=== PATIENT | male | born 1940 | race Two or more races ===

== ENCOUNTER 2019-04-30 08:23 | Observation (INO) | payer MEDICARE, OTHER ==
--- NOTE | 2019-04-30 08:44 | ED ---
Abdominal Pain HPI - General Chief Complaint: Abdominal Pain Stated Complaint: H/O Diverticulitis Left abd pain Time Seen by Provider: 04/30/19 08:30 Source: patient, RN notes reviewed Mode of arrival: ambulatory Limitations: no limitations - History of Present Illness Initial Comments: This is a 78-year-old male with a prior history of diverticulitis who states he's had several days of left lower quadrant abdominal pain he states it is also in the flank area states last night he had fevers and chills with it. He feels very similar to his previous episode of diverticulitis. He states at rest the pain is about 4/10 when he pushes on it is about 8/10. No dysuria hematuria no trouble bowel movements. Of note he does have a history of a denture robot prostatectomy in the past. MD Complaint: abdominal pain - Related Data Home Medications Medication Instructions Recorded Confirmed Aspirin 81 mg PO DAILY 04/30/19 04/30/19 Calcium Carbonate/Vitamin D3 1 tab PO DAILY 04/30/19 04/30/19 [Calcium 600-Vit D3 400 Tablet] Esomeprazole Magnesium [NexIUM 20 mg PO DAILY 04/30/19 04/30/19 24Hr] Levothyroxine Sodium [Synthroid] 50 mcg PO SUTUTHSA 04/30/19 04/30/19 Levothyroxine Sodium [Synthroid] 75 mcg PO MOWEFR 04/30/19 04/30/19 Simvastatin [Zocor] 20 mg PO HS 04/30/19 04/30/19 Allergies Allergy/AdvReac Type Severity Reaction Status Date / Time No Known Allergies Allergy Verified 04/30/19 08:50 Review of Systems ROS Statement: Those systems with pertinent positive or pertinent negative responses have been documented in the HPI. ROS Other: All systems not noted in ROS Statement are negative. Past Medical History Past Medical History: Cancer, GERD/Reflux, Hyperlipidemia, Thyroid Disorder Additional Past Medical History / Comment(s): prostate CA History of Any Multi-Drug Resistant Organisms: None Reported Past Surgical History: Joint Replacement Additional Past Surgical History / Comment(s): prostatectomy, right hip replacement Past Psychological History: No Psychological Hx Reported Smoking Status: Never smoker Past Alcohol Use History: Occasional Past Drug Use History: None Reported General Exam - General Exam Comments Initial Comments: This is a well-developed well-nourished awake alert oriented 3 male Limitations: no limitations General appearance: alert, in no apparent distress Head exam: Present: atraumatic, normocephalic, normal inspection Eye exam: Present: normal appearance, PERRL, EOMI. Absent: scleral icterus, conjunctival injection, periorbital swelling ENT exam: Present: normal exam, mucous membranes moist Neck exam: Present: normal inspection. Absent: tenderness, meningismus, lymphadenopathy Respiratory exam: Present: normal lung sounds bilaterally. Absent: respiratory distress, wheezes, rales, rhonchi, stridor Cardiovascular Exam: Present: regular rate, normal rhythm, normal heart sounds. Absent: systolic murmur, diastolic murmur, rubs, gallop, clicks GI/Abdominal exam: Present: soft, tenderness (Left lower quadrant and slight flank tenderness palpation), normal bowel sounds. Absent: distended, guarding, rebound, rigid, bruit, pulsatile mass, hernia Rectal exam: Present: deferred Extremities exam: Present: normal inspection, full ROM, normal capillary refill. Absent: tenderness, pedal edema, joint swelling, calf tenderness Back exam: Present: normal inspection Neurological exam: Present: alert, oriented X3, CN II-XII intact Psychiatric exam: Present: normal affect, normal mood Skin exam: Present: warm, dry, intact, normal color. Absent: rash Course Vital Signs 04/30/19 08:25 Temperature 97.1 F L Pulse Rate 89 Respiratory 18 Rate Blood Pressure 161/100 O2 Sat by Pulse 98 Oximetry Medical Decision Making - Medical Decision Making I did discuss the findings with the patient this is his second bout of diverticulitis who does have pain on palpation of the left lower quadrant lower abdomen area after discussions with the patient and we will admit him I did discuss case with Dr. Smyth who did come the emergency department see the patient. - Lab Data Result diagrams: 04/30/19 08:40 04/30/19 08:40 Lab Results 04/30/19 04/30/19 04/30/19 Range/Units 08:40 08:40 08:40 WBC 9.9 (3.8-10.6) k/uL RBC 4.30 (4.30-5.90) m/uL Hgb 13.9 (13.0-17.5) gm/dL Hct 42.4 (39.0-53.0) % MCV 98.6 (80.0-100.0) fL MCH 32.2 (25.0-35.0) pg MCHC 32.7 (31.0-37.0) g/dL RDW 13.9 (11.5-15.5) % Plt Count 208 (150-450) k/uL Neutrophils % 76 % Lymphocytes % 12 % Monocytes % 7 % Eosinophils % 3 % Basophils % 1 % Neutrophils # 7.5 (1.3-7.7) k/uL Lymphocytes # 1.2 (1.0-4.8) k/uL Monocytes # 0.7 (0-1.0) k/uL Eosinophils # 0.3 (0-0.7) k/uL Basophils # 0.1 (0-0.2) k/uL PT (9.0-12.0) sec INR (<1.2) APTT (22.0-30.0) sec Sodium 141 (137-145) mmol/L Potassium 4.0 (3.5-5.1) mmol/L Chloride 102 (98-107) mmol/L Carbon Dioxide 27 (22-30) mmol/L Anion Gap 12 mmol/L BUN 15 (9-20) mg/dL Creatinine 1.13 (0.66-1.25) mg/dL Est GFR (CKD-EPI)AfAm 72 (>60 ml/min/1.73 sqM) Est GFR (CKD-EPI)NonAf 63 (>60 ml/min/1.73 sqM) Glucose 101 H (74-99) mg/dL Plasma Lactic Acid Gregory 1.8 (0.7-2.0) mmol/L Calcium 9.8 (8.4-10.2) mg/dL Magnesium 1.8 (1.6-2.3) mg/dL Total Bilirubin 0.9 (0.2-1.3) mg/dL AST 22 (17-59) U/L ALT 19 L (21-72) U/L Alkaline Phosphatase 31 L (38-126) U/L Creatine Kinase 139 (55-170) U/L Total Protein 7.9 (6.3-8.2) g/dL Albumin 4.9 (3.5-5.0) g/dL Amylase 57 (30-110) U/L Lipase 102 (23-300) U/L Urine Color Urine Appearance (Clear) Urine pH (5.0-8.0) Ur Specific Hull (1.001-1.035) Urine Protein (Negative) Urine Glucose (UA) (Negative) Urine Ketones (Negative) Urine Blood (Negative) Urine Nitrite (Negative) Urine Bilirubin (Negative) Urine Urobilinogen (<2.0) mg/dL Ur Leukocyte Esterase (Negative) 04/30/19 04/30/19 Range/Units 08:40 08:40 WBC (3.8-10.6) k/uL RBC (4.30-5.90) m/uL Hgb (13.0-17.5) gm/dL Hct (39.0-53.0) % MCV (80.0-100.0) fL MCH (25.0-35.0) pg MCHC (31.0-37.0) g/dL RDW (11.5-15.5) % Plt Count (150-450) k/uL Neutrophils % % Lymphocytes % % Monocytes % % Eosinophils % % Basophils % % Neutrophils # (1.3-7.7) k/uL Lymphocytes # (1.0-4.8) k/uL Monocytes # (0-1.0) k/uL Eosinophils # (0-0.7) k/uL Basophils # (0-0.2) k/uL PT 9.9 (9.0-12.0) sec INR 0.9 (<1.2) APTT 24.3 (22.0-30.0) sec Sodium (137-145) mmol/L Potassium (3.5-5.1) mmol/L Chloride (98-107) mmol/L Carbon Dioxide (22-30) mmol/L Anion Gap mmol/L BUN (9-20) mg/dL Creatinine (0.66-1.25) mg/dL Est GFR (CKD-EPI)AfAm (>60 ml/min/1.73 sqM) Est GFR (CKD-EPI)NonAf (>60 ml/min/1.73 sqM) Glucose (74-99) mg/dL Plasma Lactic Acid Gregory (0.7-2.0) mmol/L Calcium (8.4-10.2) mg/dL Magnesium (1.6-2.3) mg/dL Total Bilirubin (0.2-1.3) mg/dL AST (17-59) U/L ALT (21-72) U/L Alkaline Phosphatase (38-126) U/L Creatine Kinase (55-170) U/L Total Protein (6.3-8.2) g/dL Albumin (3.5-5.0) g/dL Amylase (30-110) U/L Lipase (23-300) U/L Urine Color Light Yellow Urine Appearance Clear (Clear) Urine pH 6.5 (5.0-8.0) Ur Specific Hull 1.004 (1.001-1.035) Urine Protein Negative (Negative) Urine Glucose (UA) Negative (Negative) Urine Ketones Negative (Negative) Urine Blood Negative (Negative) Urine Nitrite Negative (Negative) Urine Bilirubin Negative (Negative) Urine Urobilinogen <2.0 (<2.0) mg/dL Ur Leukocyte Esterase Negative (Negative) - Radiology Data Radiology results: report reviewed (I did review the imaging and report is evidence of diverticulitis with localized edema some stranding of the report), image reviewed Disposition Clinical Impression: Abdominal pain, Diverticulitis Disposition: ADMITTED IP TO THIS [facility] Condition: Fair Referrals: None,Stated [Primary Care Provider] - 1-2 days
[2019-04-30 08:58] LABS: Appearance,Urine Clear (Clear); Basophils # (A) 0.1 k/uL (0-0.2); Basophils % (A) 1 %; Bilirubin,Urine Negative (Negative); Blood,Urine Negative (Negative); Color,Urine Light Yellow; Eosinophils # (A) 0.3 k/uL (0-0.7); Eosinophils % (A) 3 %; Glucose,Urine (UA) Negative (Negative); HCT 42.4 % (39.0-53.0); HGB 13.9 gm/dL (13.0-17.5); Ketones,Urine Negative (Negative); Leukocyte Esterase,Urine Negative (Negative); Lymphocytes # (A) 1.2 k/uL (1.0-4.8); Lymphocytes % (A) 12 %; MCH 32.2 pg (25.0-35.0); MCHC 32.7 g/dL (31.0-37.0); MCV 98.6 fL (80.0-100.0); Mean Platelet Volume 7.5; Monocytes # (A) 0.7 k/uL (0-1.0); Monocytes % (A) 7 %; Neutrophils # (A) 7.5 k/uL (1.3-7.7); Neutrophils % (A) 76 %; Nitrite,Urine Negative (Negative); PH, Urine 6.5 (5.0-8.0); Platelet Count 208 k/uL (150-450); Protein,Urine Negative (Negative); RDW 13.9 % (11.5-15.5); Specific Gravity,Urine 1.004 (1.001-1.035); Urobilinogen,Urine <2.0 mg/dL (<2.0); WBC 9.9 k/uL (3.8-10.6)
[2019-04-30 09:07] LABS: Albumin 4.9 g/dL (3.5-5.0); Calcium 9.8 mg/dL (8.4-10.2); INR 0.9 (<1.2); Magnesium 1.8 mg/dL (1.6-2.3); Partial Thromboplastin Time 24.3 sec (22.0-30.0); Prothrombin Time 9.9 sec (9.0-12.0); Total Bilirubin 0.9 mg/dL (0.2-1.3); Total Protein 7.9 g/dL (6.3-8.2)
--- NOTE | 2019-04-30 09:54 | CT ---
EXAMINATION TYPE: CT abdomen pelvis w con DATE OF EXAM: 04/30/2019 COMPARISON: NONE HISTORY: 78-year-old male with left abd pain TECHNIQUE: Contiguous axial scanning of the abdomen and pelvis following administration of 100 ml Iso julio cesar 300 IV contrast. Delayed images through the kidneys and coronal/sagittal reconstructions perform ed. CT DLP: 1103.8 mGycm Automated exposure control for dose reduction was used. FINDINGS: Heart normal size without pericardial effusion. Aortic valvular calcifications are present as well as coronary vessel calcifications. Ectasia of the visualized ascending aorta at 3.9 cm. Strandy bibasil ar atelectasis. Small hiatal hernia. Somewhat low attenuation of the hepatic parenchyma, possible underlying fatty infiltration. Liver is borderline enlarged at 17.5 cm. Portal venous system is patent. No biliary ductal dilatation. Gallbladder, adrenal glands, kidneys, spleen, and pancreas appear within normal limits. No dilated small bowel or free air. Tiny fatty periumbilical hernia. There is left sided colonic diverticulosis, greatest in the proximal to mid sigmoid colon with focal moderate edematous wall thickening of the lower descending colon and moderate adjacent tracking edema and inflammatory fat stranding. No abscess formation. No mesenteric or retroperitoneal lymphadenopathy. Bladder is urine distended. Prostate gland is surgically absent. No abnormal fluid collection in the pelvis or pelvic lymphadenopathy. Bones: Right hip total arthroplasty. Degenerative changes left hip. Hypertrophic facet arthropathy mi d to lower lumbar spine with grade 1 anterolisthesis at L4-L5 and L5-S1. IMPRESSION: 1. LEFT-SIDED CLONIC DIVERTICULOSIS WITH POSITIVE FINDINGS FOR ACUTE DIVERTICULITIS ALONG THE LOWER D ESCENDING COLON. MODERATE SURROUNDING INFLAMMATORY CHANGE WITHOUT ABSCESS OR FREE AIR. 2. DIRECT VISUALIZATION RECOMMENDED FOLLOWING SUCCESSFUL TREATMENT.
[2019-04-30] MEDS ORDERED: PIPERACILLIN-TAZOBACTAM 3.375 GM in SODIUM CHLORIDE 0.9% 100 ML IVPB STA (11:34)
[2019-04-30] MEDS ORDERED: HYDROmorphone 1 MG/ML 1 ML SYRINGE IVP PRN (11:36)
[2019-04-30] MEDS ORDERED: ONDANSETRON 4 MG/2 ML VIAL IVP PRN (11:36)
[2019-04-30] MEDS ORDERED: NALOXONE 0.4 MG/ML 1 ML VIAL IV PRN (11:36)
[2019-04-30] MEDS: SODIUM CHLORIDE 0.9% 1,000 ML IV SCH ×2 (12:08→20:32)
--- NOTE | 2019-04-30 12:43 | P.HPIM ---
History of Present Illness H&P Date: 04/30/19 Chief Complaint: Left lowerr quadrant pain The patient is a 78-year-old male, who resides in [place] and [place] with a past medical history of diverticulosis, hypothyroidism, hyperlipidemia and prostate cancer on Lupron who presents to the ER via private vehicle with chief complaint of left lower quadrant pain. Apparently the patient has been having discomfort over the last few weeks that have gradually worsened in the last 3 days, the patient reports subjective fevers and chills, he denies any diarrhea or constipation, nausea or vomiting, but reports decreased appetite. He denies any bright red blood per rectum or dark stools The patient denies any chest pain or shortness of breath. In the ED the patient had a comprehensive workup including CT abdomen and pelvis, that showed left-sided colonic diverticulosis with positive findings for acute diverticulitis along the left lower this descending colon and moderate surrounding inflammation without abscess or free air. The patient was noted to be febrile with a temperature of 100.4, he had no white count And vitals were otherwise stable, he was recommended for admission for acute diverticulitis and started on IV fluids and Zosyn. Review of Systems the pertinent positives per HPI, all other systems otherwise negative Past Medical History Past Medical History: Cancer, GERD/Reflux, Hyperlipidemia, Thyroid Disorder Additional Past Medical History / Comment(s): prostate CA History of Any Multi-Drug Resistant Organisms: None Reported Past Surgical History: Joint Replacement Additional Past Surgical History / Comment(s): prostatectomy, right hip replacement Past Psychological History: No Psychological Hx Reported Smoking Status: Never smoker Past Alcohol Use History: Occasional Past Drug Use History: None Reported Medications and Allergies Home Medications Medication Instructions Recorded Confirmed Type Aspirin 81 mg PO DAILY 04/30/19 04/30/19 History Calcium Carbonate/Vitamin D3 1 tab PO DAILY 04/30/19 04/30/19 History [Calcium 600-Vit D3 400 Tablet] Esomeprazole Magnesium [NexIUM 20 mg PO DAILY 04/30/19 04/30/19 History 24Hr] Levothyroxine Sodium [Synthroid] 50 mcg PO SUTUTHSA 04/30/19 04/30/19 History Levothyroxine Sodium [Synthroid] 75 mcg PO MOWEFR 04/30/19 04/30/19 History Simvastatin [Zocor] 20 mg PO HS 04/30/19 04/30/19 History Allergies Allergy/AdvReac Type Severity Reaction Status Date / Time No Known Allergies Allergy Verified 04/30/19 08:50 Physical Exam Vitals: Vital Signs Temp Pulse Resp BP Pulse Ox 04/30/19 08:25 97.1 F L 89 18 161/100 98 Intake and Output 04/29/19 04/30/19 04/30/19 22:59 06:59 14:59 Other: Weight 86.183 kg Constitutional: No acute distress, conversant, pleasant Eyes: Anicteric sclerae, moist conjunctiva, no lid-lag, PERRLA ENMT: NC/AT,Oropharynx clear, no erythema, exudates Neck:Supple, FROM, no masses, or JVD, No carotid bruits; No thyromegaly Lungs: Clear to auscultation, Clear to percussion, Normal respiratory effort, no accessory muscle use Cardiovascular: Heart regular in rate and rhythm, No murmurs, gallops, or rubs no peripheral edema Abdominal: Soft Nontender, nom distended, no guarding, no rebound or rigidity, Normoactive bowel sounds No hepatomegaly, No splenomegaly, No palpable mass No abdominal wall hernia noted Skin: Normal temperature, tone, texture, turgor, No induration No subcutaneous nodules, No rash, lesions, No ulcers Extremities:No digital cyanosis No clubbing, Pedal pulses intact and symmetrical Radial pulses intact and symmetrical Normal gait and station, No calf tenderness Psychiatric: Alert and oriented to person, place and time, Appropriate affect Intact judgement Neuro: Muscles Strength 5/5 in all 4 extremities, Sensation to light touch grossly present throughout, Cranial nerves II-XII grossly intact. No focal sensory deficits Results CBC & Chem 7: 04/30/19 08:40 04/30/19 08:40 Labs: Abnormal Lab Results - Last 24 Hours (Table) 04/30/19 Range/Units 08:40 Glucose 101 H (74-99) mg/dL ALT 19 L (21-72) U/L Alkaline Phosphatase 31 L (38-126) U/L Assessment and Plan (1) Acute diverticulitis Current Visit: Yes Status: Acute Code(s): K57.92 - DVTRCLI OF INTEST, PART UNSP, W/O PERF OR ABSCESS W/O BLEED SNOMED Code(s): 986317154 (2) Hypothyroidism Current Visit: Yes Status: Acute Code(s): E03.9 - HYPOTHYROIDISM, UNSPECIFIED SNOMED Code(s): 64201189 (3) Hyperlipidemia Current Visit: Yes Status: Acute Code(s): E78.5 - HYPERLIPIDEMIA, UNS PECIFIED SNOMED Code(s): 78268088 (4) History of prostate cancer Current Visit: Yes Status: Acute Code(s): Z85.46 - PERSONAL HISTORY OF MALIGNANT NEOPLASM OF PROSTATE SNOMED Code(s): 397974852 Plan: The patientin observation anticipate a less than 2 midnight stay with acute diverticulitis after beginning with left lower quadrant abdominal pain and a fever, patient does not appear septic vitals are otherwise stable and started on empiric IV antibiotics with Zosyn, and continued on IV fluids, diverticular diet. GI prophylaxis with Protonix and DVT prophylaxis with SCDs and heparin, will likely be able to be discharged home tomorrow on oral antibiotics such as Flagyl and ciprofloxacin. We'll continue to follow his clinical course CODE STATUS: Full code Discussed plan of care with: Patient and ER physician Anticipated discharge: 1-[address]: Home
[2019-04-30] MEDS ORDERED: ACETAMINOPHEN TAB 500 MG TAB PO STA (13:59)
[2019-04-30] MEDS: HEPARIN SODIUM,PORCINE 5,000 UNIT/ML 1 ML VIAL SQ SCH ×2 (14:43→23:32)
[2019-04-30] MEDS: PIPERACILLIN-TAZOBACTAM 3.375 GM in SODIUM CHLORIDE 0.9% 100 ML IVPB SCH (20:29)
[2019-04-30] MEDS ORDERED: ATORVASTATIN 10 MG TAB PO SCH (21:00)
[2019-05-01] MEDS: PIPERACILLIN-TAZOBACTAM 3.375 GM in SODIUM CHLORIDE 0.9% 100 ML IVPB SCH (04:35)
[2019-05-01] MEDS ORDERED: PIPERACILLIN-TAZOBACTAM 3.375 GM in SODIUM CHLORIDE 0.9% 100 ML IVPB SCH (04:45)
[2019-05-01 05:23] VITALS: BP 122/78; PULSE 61; TEMP 98.4
[2019-05-01] MEDS ORDERED: LEVOTHYROXINE 50 MCG TAB PO SCH (06:30)
[2019-05-01] MEDS: HEPARIN SODIUM,PORCINE 5,000 UNIT/ML 1 ML VIAL SQ SCH (08:14)
[2019-05-01] MEDS: SODIUM CHLORIDE 0.9% 1,000 ML IV SCH (08:16)
[2019-05-01] MEDS ORDERED: CALCIUM CARB-VIT D 500MG-200UN 1 EACH TAB PO SCH (09:00)
[2019-05-01] MEDS ORDERED: ASPIRIN 81 MG PO SCH (09:00)
[2019-05-01] MEDS ORDERED: PANTOPRAZOLE 40 MG/10 ML VIAL IV SCH (09:00)
[2019-05-01 09:42] VITALS: RESP 18
--- NOTE | 2019-05-01 20:00 | P.DS ---
Providers Date of admission: 04/30/19 11:36 Expected date of discharge: 05/01/19 Attending physician: Yaw Smyth MD Primary care physician: Stated None Hospital Course: Discharge Diagnosis: Diverticulitis Hypothyroidism Dyslipidemia History of prostate cancer GERD Hospital Course: Patient is a 78-year-old male with a history of diverticulitis, hypothyroidism, and dyslipidemia who presented to the emergency department with complaints of abdominal pain. On arrival to the ER his vital signs were within normal limits. He then did spike a fever up to 101.1 which resolved with Tylenol. Initial laboratory analysis is unremarkable.CT abdomen and pelvis showed left-sided colonic diverticulitis with moderate inflammatory changes without abscess or free air. He was started on IV fluids, clear liquid diet, and IV antibiotics. He was admitted for further monitoring and care. On the morning of 05/01 was able to tolerate a full liquid diet. His pain had resolved. He denied any nausea. He was asking to be discharged home he had not spiked any fevers 24 hours. He will complete a seven-day course of Augmentin. He typically lives half the year in [place] and half the year and [place] He does not have a PCP here he was given the contact information for Dr. Cuevas. We also discussed the fact that he should have a direct visualization of this inflamed area. He states he has abstained on his colonoscopies but has a history of a polyp. I will asked him to follow with the PCP first and then have a referral to GI for possible colonoscopy. Patient will complete his course of antibiotics. He will stay on a full liquid diet for the next 3 days. He will then advanced to a regular diet. He is instructed to return to the hospital should his pain worsen, fevers occur, or if he overall feels worse. Patient seen and examined at bedside. Denies any abdominal pain, no nausea, no vomiting, tolerating diet, feels well already dressed and wanting to go home. Vital signs reviewed and stable. General: non toxic, no distress, appears at stated age Derm: warm, dry Head: atraumatic, normocephalic, symmetric Eyes: EOMI, no lid lag, anicteric sclera Mouth: no lip lesion, mucus membranes moist Cardiovascular: S1S2 reg, no murmur, positive posterior tibial pulse bilateral, Lungs: CTA bilateral, no rhonchi, no rales , no accessory muscle use Abdominal: soft, nontender to palpation, no guarding, no appreciable organomegaly Ext: no gross muscle atrophy, no edema, no contractures Neuro: CN II-XI grossly intact, no focal neuro deficits Psych: Alert, oriented, appropriate affect A total of 25 minutes of time were spent preparing this complex discharge summary . Pertinent Studies: CT abdomen and pelvis showed left-sided colonic diverticulitis with moderate inflammatory changes without abscess or free air. Patient Condition at Discharge: Stable Plan - Discharge Summary Discharge Rx Participant: No New Discharge Prescriptions: New Amoxic-Pot Clav 875-125Mg [Augmentin 875-125] 1 tab PO Q12HR #16 tablet Continue Levothyroxine Sodium [Synthroid] 50 mcg PO SUTUTHSA Levothyroxine Sodium [Synthroid] 75 mcg PO MOWEFR Esomeprazole Magnesium [NexIUM 24Hr] 20 mg PO DAILY Aspirin 81 mg PO DAILY Calcium Carbonate/Vitamin D3 [Calcium 600-Vit D3 400 Tablet] 1 tab PO DAILY Simvastatin [Zocor] 20 mg PO HS Discharge Medication List Aspirin 81 mg PO DAILY 04/30/19 [History] Calcium Carbonate/Vitamin D3 [Calcium 600-Vit D3 400 Tablet] 1 tab PO DAILY 04/30/19 [History] Esomeprazole Magnesium [NexIUM 24Hr] 20 mg PO DAILY 04/30/19 [History] Levothyroxine Sodium [Synthroid] 50 mcg PO SUTUTHSA 04/30/19 [History] Levothyroxine Sodium [Synthroid] 75 mcg PO MOWEFR 04/30/19 [History] Simvastatin [Zocor] 20 mg PO HS 04/30/19 [History] Amoxic-Pot Clav 875-125Mg [Augmentin 875-125] 1 tab PO Q12HR #16 tablet 05/01/19 [Rx] Follow up Appointment(s)/Referral(s): Sung Cuevas MD [STAFF PHYSICIAN] - 1 Week None,Stated [Primary Care Provider] - 1-2 days Patient Instructions/Handouts: Diverticulitis (DC), Diverticulitis Diet (DC), Full Liquid Diet (DC) Activity/Diet/Wound Care/Special Instructions: full liquid diet then advance to soft diet activity as tolerated Discharge Disposition: HOME SELF-CARE
[2019-05-02] MEDS ORDERED: LEVOTHYROXINE 75 MCG TAB PO SCH (06:30)
== END 2019-05-01 13:04 | disposition home or self-care (01) ==
LOC: EC 08:23 → 4MS4W 11:36 → INTOOBSV 11:36 → 4MS4W 13:47
PROVIDERS: ADMIT Family Medicine; ATTEND Family Medicine
DX: K57.32 Diverticulitis of large intestine without perforation or abscess without bleeding (principal); E03.9 Hypothyroidism, unspecified; E78.5 Hyperlipidemia, unspecified; K21.9 Gastro-esophageal reflux disease without esophagitis; Z85.46 Personal history of malignant neoplasm of prostate; Z96.641 Presence of right artificial hip joint; Z79.82 Long term (current) use of aspirin; Z79.890 Hormone replacement therapy; Z79.899 Other long term (current) drug therapy
CPT/HCPCS: 96361; 96366 ×2; 96372; 96375; 96365; 99285; 36415; 80053; 82150; 82550; 83605; 83690; 83735; 85025; 85610; 85730; 81003; 87040; 74177; G0378 ×2; J2543 ×2; J1644; C9113; Q9967

== ENCOUNTER 2019-07-11 09:16 | Emergency (ER) | payer MEDICARE ==
[2019-07-11 09:31] VITALS: BP 154/102; PULSE 63; RESP 17; TEMP 98.2
[2019-07-11 09:48] LABS: Appearance,Urine Clear (Clear); Bilirubin,Urine Negative (Negative); Blood,Urine Negative (Negative); Color,Urine Light Yellow; Glucose,Urine (UA) Negative (Negative); Ketones,Urine Negative (Negative); Leukocyte Esterase,Urine Negative (Negative); Nitrite,Urine Negative (Negative); PH, Urine 6.5 (5.0-8.0); Protein,Urine Negative (Negative); Specific Gravity,Urine 1.005 (1.001-1.035); Urobilinogen,Urine <2.0 mg/dL (<2.0)
--- NOTE | 2019-07-11 10:08 | ED ---
General Adult HPI - General Chief complaint: Urogenital Stated complaint: Urogenital Time Seen by Provider: 07/11/19 09:32 Source: patient Mode of arrival: ambulatory Limitations: no limitations - History of Present Illness Initial comments: Dictation was produced using [employer] dictation software. please excuse any grammatical, word or spelling errors. Chief Complaint: 79-year-old male presents with chief complaint of a mainly pain to the foreskin of the penis. History of Present Illness: 79-year-old male. He presents today with foreskin complaints. Patient had a circumcision done at the age of 22. He has history of phimosis. The last several weeks she's been having increase in his of his foreskin. He is currently from [facility] however has healthcare. He went to go see his primary care doctor gave him referral to urologist however he was unable to make that appointment because his urologist does not accept his insurance. Study came to the emergency department for evaluation. She denies any urinary retention. Patient has been caring for his phimosis. He also has a urologist on [place]. He was told to anticipate a procedure to be done in September to release any foreskin. The ROS documented in this emergency department record has been reviewed and confirmed by me. Those systems with pertinent positive or negative responses have been documented in the HPI. All other systems are other negative and/or noncontributory. PHYSICAL EXAM: General Impression: Alert and oriented x3, not in acute distress HEENT: Normocephalic atraumatic, extra-ocular movements intact, pupils equal and reactive to light bilaterally, mucous membranes moist. Cardiovascular: Heart regular rate and rhythm, S1&S2 audible, no murmurs, rubs or gallops Chest: Lungs clear to auscultation bilaterally, no rhonchi, no wheeze, no rales Abdomen: Bowel sounds present, abdomen soft, non-tender, non-distended, no organomegaly Musculoskeletal: Pulses present and equal in all extremities, no peripheral edema Motor: no focal deficits noted Neurological: CN II-XII grossly intact, no focal motor or sensory deficits noted Skin: Intact with no visualized rashes Psych: Normal affect and mood exam: Slightly hypertrophic foreskin witharound the glans. Foreskin is not retracted. Glans appears intact. No erythema or discharge noted of the foreskin or glands. ED course: 79 y old male presents with foreskin complaints. This point there does not appear to be any signs of infection. There is room for the glans and distal penis that does not apparently constricted. Vital signs upon arrival are within acceptable limits. Clinical presentation consistent with phimosis. Bladder scan is 11 mL post void, discussed patient case with urology Dr. Ricks who recommends patient be seen in outpatient clinic for possible procedure to retract the foreskin. She can prescription for Lotrimin cream. - Related Data Home Medications Medication Instructions Recorded Confirmed Aspirin 81 mg PO DAILY 04/30/19 04/30/19 Calcium Carbonate/Vitamin D3 1 tab PO DAILY 04/30/19 04/30/19 [Calcium 600-Vit D3 400 Tablet] Esomeprazole Magnesium [NexIUM 20 mg PO DAILY 04/30/19 04/30/19 24Hr] Levothyroxine Sodium [Synthroid] 50 mcg PO SUTUTHSA 04/30/19 04/30/19 Levothyroxine Sodium [Synthroid] 75 mcg PO MOWEFR 04/30/19 04/30/19 Simvastatin [Zocor] 20 mg PO HS 04/30/19 04/30/19 Previous Rx's Medication Instructions Recorded Amoxic-Pot Clav 875-125Mg 1 tab PO Q12HR #16 tablet 05/01/19 [Augmentin 875-125] Clotrimazole Cream [Lotrimin Cream] 1 applic TOPICAL BID #1 tube 07/11/19 Allergies Allergy/AdvReac Type Severity Reaction Status Date / Time No Known Allergies Allergy Verified 04/30/19 08:50 Review of Systems ROS Statement: Those systems with pertinent positive or pertinent negative responses have been documented in the HPI. ROS Other: All systems not noted in ROS Statement are negative. Past Medical History Past Medical History: Cancer, GERD/Reflux, Hyperlipidemia, Thyroid Disorder Additional Past Medical History / Comment(s): Prostate CA with surgery/radiation, diverticulitis, hypothyroid, bilateral cataracts, phimosis, History of Any Multi-Drug Resistant Organisms: None Reported Past Surgical History: Joint Replacement Additional Past Surgical History / Comment(s): Prostatectomy, right hip replacement, EGD, colonoscopies, cataract surgery Past Anesthesia/Blood Transfusion Reactions: No Reported Reaction Past Psychological History: No Psychological Hx Reported Smoking Status: Never smoker Past Alcohol Use History: Occasional Past Drug Use History: None Reported - Past Family History Father Family Medical History: Rheumatoid Arthritis (RA) Additional Family Medical History / Comment(s): Father lived to be 86-87 yrs old. Mother Family Medical History: Diabetes Mellitus Additional Family Medical History / Comment(s): Mother from complication of her diabetes at the age of 65yr General Exam Limitations: no limitations Course Vital Signs 07/11/19 09:20 Temperature 98.2 F Pulse Rate 63 Respiratory 17 Rate Blood Pressure 154/102 O2 Sat by Pulse 96 Oximetry Medical Decision Making - Lab Data Lab Results 07/11/19 Range/Units 09:37 Urine Color Light Yellow Urine Appearance Clear (Clear) Urine pH 6.5 (5.0-8.0) Ur Specific [place] 1.005 (1.001-1.035) Urine Protein Negative (Negative) Urine Glucose (UA) Negative (Negative) Urine Ketones Negative (Negative) Urine Blood Negative (Negative) Urine Nitrite Negative (Negative) Urine Bilirubin Negative (Negative) Urine Urobilinogen <2.0 (<2.0) mg/dL Ur Leukocyte Esterase Negative (Negative) Disposition Clinical Impression: Phimosis Disposition: HOME SELF-CARE Condition: Good Instructions (If sedation given, give patient instructions): Phimosis (ED) Prescriptions: Clotrimazole Cream [Lotrimin Cream] 1 applic TOPICAL BID #1 tube Is patient prescribed a controlled substance at d/c from ED?: No Referrals: Marco Antonio Ricks MD [STAFF PHYSICIAN] - 1-2 days Time of Disposition: 10:08
== END 2019-07-11 10:12 | disposition home or self-care (01) ==
LOC: EC 09:16
DX: N47.1 Phimosis (principal); K21.9 Gastro-esophageal reflux disease without esophagitis; E03.9 Hypothyroidism, unspecified; E78.5 Hyperlipidemia, unspecified; Z79.82 Long term (current) use of aspirin; Z79.890 Hormone replacement therapy; Z79.899 Other long term (current) drug therapy; Z90.79 Acquired absence of other genital organ(s); Z96.641 Presence of right artificial hip joint; Z92.3 Personal history of irradiation; Z85.46 Personal history of malignant neoplasm of prostate; Z98.41 Cataract extraction status, right eye; Z98.42 Cataract extraction status, left eye
CPT/HCPCS: 51798; 81003; 99284

== ENCOUNTER 2019-11-13 14:29 | Emergency (ER) | payer MEDICARE ==
[2019-11-13] MEDS ORDERED: methylPREDNISolone SOD SUCCI 125 MG/2 ML VIAL IM ONE (16:16)
[2019-11-13] MEDS ORDERED: cefTRIAXone 1,000 MG VIAL (IM USE) IM STA (16:16)
[2019-11-13 16:21] VITALS: RESP 18
--- NOTE | 2019-11-13 16:30 | XR ---
EXAMINATION TYPE: XR chest 2V DATE OF EXAM: 11/13/2019 COMPARISON: None HISTORY: 79-year-old male with cough and congestion TECHNIQUE: PA and lateral views FINDINGS: The cardiomediastinal silhouette, aorta, and pulmonary vasculature are within normal limits. There is some patchy peripheral left basilar opacity. Remainder of the lungs and pleural spaces are clear. IMPRESSION: Patchy peripheral left basilar atelectasis versus early infiltrate. Follow-up can be considered.
--- NOTE | 2019-11-13 16:41 | ED ---
URI HPI <Anton Swanson - Last Filed: 11/13/19 16:59> - General Source: patient, RN notes reviewed, old records reviewed Mode of arrival: ambulatory Limitations: no limitations <Shira العلي - Last Filed: 11/14/19 06:43> - General Chief Complaint: Upper Respiratory Infection Stated Complaint: chest & head congestion Time Seen by Provider: 11/13/19 16:06 - History of Present Illness Initial Comments: Patient is a pleasant healthy 79-year-old male presents emergency room today with 3 days cough congestion. He reports it seems to be settling into his lungs. Patient states that he's had a yellow green productive phlegm. Denies any fevers. He states that he's had pneumonia in the past and wanted have this treated before he travels back home to [place]. (Shira العلي) - Related Data Home Medications Medication Instructions Recorded Confirmed Aspirin 81 mg PO DAILY 04/30/19 04/30/19 Calcium Carbonate/Vitamin D3 1 tab PO DAILY 04/30/19 04/30/19 [Calcium 600-Vit D3 400 Tablet] Esomeprazole Magnesium [NexIUM 20 mg PO DAILY 04/30/19 04/30/19 24Hr] Levothyroxine Sodium [Synthroid] 50 mcg PO SUTUTHSA 04/30/19 04/30/19 Levothyroxine Sodium [Synthroid] 75 mcg PO MOWEFR 04/30/19 04/30/19 Simvastatin [Zocor] 20 mg PO HS 04/30/19 04/30/19 Previous Rx's Medication Instructions Recorded Amoxic-Pot Clav 875-125Mg 1 tab PO Q12HR #16 tablet 05/01/19 [Augmentin 875-125] Clotrimazole Cream [Lotrimin Cream] 1 applic TOPICAL BID #1 tube 07/11/19 Albuterol Inhaler [Ventolin Hfa 1 - 2 puff INHALATION RT-Q6H PRN 11/13/19 Inhaler] #1 inhaler Azithromycin [Zithromax Z-pack] 250 mg PO DIRECTED #6 tab 11/13/19 Guaifenesin/Dextromethorphan 1 each PO BID #30 capsule 11/13/19 [Robitussin Jcyhh-Hhjmc-Jsrw Dm] predniSONE 10 mg PO DAILY #15 tab 11/13/19 Allergies Allergy/AdvReac Type Severity Reaction Status Date / Time No Known Allergies Allergy Verified 04/30/19 08:50 Review of Systems ROS Other: All systems not noted in ROS Statement are negative. <Anton Swanson - Last Filed: 11/13/19 16:59> ROS Other: All systems not noted in ROS Statement are negative. <Shira العلي - Last Filed: 11/14/19 06:43> ROS Statement: Those systems with pertinent positive or pertinent negative responses have been documented in the HPI. Past Medical History Past Medical History: Cancer, GERD/Reflux, Hyperlipidemia, Thyroid Disorder Additional Past Medical History / Comment(s): Prostate CA with surgery/radiation, diverticulitis, hypothyroid, bilateral cataracts, phimosis, History of Any Multi-Drug Resistant Organisms: None Reported Past Surgical History: Joint Replacement Additional Past Surgical History / Comment(s): Prostatectomy, right hip replacement, EGD, colonoscopies, cataract surgery Past Anesthesia/Blood Transfusion Reactions: No Reported Reaction Past Psychological History: No Psychological Hx Reported Smoking Status: Never smoker Past Alcohol Use History: Occasional Past Drug Use History: None Reported - Past Family History Father Family Medical History: Rheumatoid Arthritis (RA) Additional Family Medical History / Comment(s): Father lived to be 86-87 yrs old. Mother Family Medical History: Diabetes Mellitus Additional Family Medical History / Comment(s): Mother from complication of her diabetes at the age of 65yr <Shira العلي - Last Filed: 11/14/19 06:43> General Exam Limitations: no limitations General appearance: alert, in no apparent distress Head exam: Present: atraumatic, normocephalic, normal inspection Eye exam: Present: normal appearance, PERRL, EOMI. Absent: scleral icterus, conjunctival injection, periorbital swelling ENT exam: Present: normal exam, mucous membranes moist Neck exam: Present: normal inspection. Absent: tenderness, meningismus, lymphadenopathy Respiratory exam: Present: normal lung sounds bilaterally. Absent: respiratory distress, wheezes, rales, rhonchi, stridor Cardiovascular Exam: Present: regular rate, normal rhythm, normal heart sounds. Absent: systolic murmur, diastolic murmur, rubs, gallop, clicks GI/Abdominal exam: Present: soft, normal bowel sounds. Absent: distended, tenderness, guarding, rebound, rigid Extremities exam: Present: normal inspection, full ROM, normal capillary refill. Absent: tenderness, pedal edema, joint swelling, calf tenderness Back exam: Present: normal inspection Neurological exam: Present: alert, oriented X3, CN II-XII intact Psychiatric exam: Present: normal affect, normal mood Skin exam: Present: warm, dry, intact, normal color. Absent: rash <Shira العلي - Last Filed: 11/14/19 06:43> - General Exam Comments Initial Comments: 79 year old male, no distress. (Shira العلي) Course <Anton Swanson - Last Filed: 11/13/19 16:59> Vital Signs 11/13/19 11/13/19 11/13/19 15:09 16:15 17:05 Temperature 98.9 F 98.3 F Pulse Rate 88 74 Respiratory 19 18 18 Rate Blood Pressure 127/88 124/73 O2 Sat by Pulse 96 98 Oximetry - Reevaluation(s) Reevaluation #1: 11/13/19 16:59 PA supervision: I proceeded [id number] evaluation the patient he did present with symptoms consistent with left lower lobe pneumonia this does show on the x- ray. Patient does agree with the plan he does agree with oral antibiotics and discharged. (Anton Swanson) Medical Decision Making - Radiology Data Radiology results: report reviewed <Shira العلي - Last Filed: 11/14/19 06:43> - Medical Decision Making 71-year-old male presents today with 3 days of cough congestion. He reports it started as of her sinuses and settled towards the flanks. Patient reports that he has had history of pneumonia past. Chest x-ray shows lower atelectasis versus infiltrate. Patient will be treated this time with antibiotics. He otherwise appears well. Vital signs stable. No significant wheezing or difficulty breathing. Patient was given IM Rocephin and Solu-Medrol. I discussed the Patient can return if he has any worsening symptoms and discussed from follow-up with primary care doctor. Patient is agreeable to treatment plan will comply. Return parameters were discussed. (Shira العلي) - Radiology Data Patchy peripheral left basilar atelectasis versus early infiltrate. Follow-up to be considered. (Shira العلي) Disposition <Anton Swanson - Last Filed: 11/13/19 16:59> Is patient prescribed a controlled substance at d/c from ED?: No Time of Disposition: 16:52 <SeverianoShira - Last Filed: 11/14/19 06:43> Clinical Impression: Pneumonia Disposition: HOME SELF-CARE Condition: Good Instructions (If sedation given, give patient instructions): Community Acquired Pneumonia (ED) Additional Instructions: Patient advised to rest remain hydrated. Take the medications as prescribed. Follow-up with your primary care doctor for recheck next few days. Return to emergency department if any alarming signs or symptoms occur. Prescriptions: predniSONE 10 mg PO DAILY #15 tab Guaifenesin/Dextromethorphan [Robitussin Civvd-Kloie-Kqsl Dm] 1 each PO BID #30 capsule Albuterol Inhaler [Ventolin Hfa Inhaler] 1 - 2 puff INHALATION RT-Q6H PRN #1 inhaler PRN Reason: Shortness Of Breath Azithromycin [Zithromax Z-pack] 250 mg PO DIRECTED #6 tab Referrals: Ronald Calvillo MD [Primary Care Provider] - 1-2 days
[2019-11-13] MEDS ORDERED: AZITHROMYCIN 500 MG TAB PO STA (16:53)
[2019-11-13 17:10] VITALS: BP 124/73; PULSE 74; TEMP 98.3
== END 2019-11-13 17:06 | disposition home or self-care (01) ==
LOC: EC 14:29
DX: J18.9 Pneumonia, unspecified organism (principal); E78.5 Hyperlipidemia, unspecified; E03.9 Hypothyroidism, unspecified; K21.9 Gastro-esophageal reflux disease without esophagitis; Z79.82 Long term (current) use of aspirin; Z79.890 Hormone replacement therapy; Z79.899 Other long term (current) drug therapy; Z85.46 Personal history of malignant neoplasm of prostate; Z90.79 Acquired absence of other genital organ(s); Z96.641 Presence of right artificial hip joint
CPT/HCPCS: 71046; 99284; 96372 ×2; J2930; J0696

== ENCOUNTER 2022-11-18 05:32 | Emergency (ER) | payer MEDICARE ==
[2022-11-18 05:45] VITALS: TEMP 99.9
--- NOTE | 2022-11-18 06:22 | XR ---
EXAMINATION TYPE: XR chest 2V DATE OF EXAM: 11/18/2022 COMPARISON: Chest x-ray November 13, 2019 HISTORY: Cough and congestion. COVID. TECHNIQUE: Frontal and lateral views of the chest are obtained. FINDINGS: Stable lateral left basilar linear opacity favoring scarring and/or atelectasis. There is no new focal air space opacity, pleural effusion, or pneumothorax seen. The cardiac silhouette size is stable and within normal limits. The osseous structures are intact. IMPRESSION: Stable lateral left basilar linear scarring and/or atelectasis. No new acute infiltrate is seen.
--- NOTE | 2022-11-18 07:52 | ED ---
General Adult HPI - General Chief complaint: Shortness of Breath Stated complaint: pneumonia Time Seen by Provider: 11/18/22 06:20 Source: patient Mode of arrival: ambulatory Limitations: no limitations - History of Present Illness Initial comments: Pt was seen for advanced triage purposes: 82 year old male states he started to get a head cold 2-3 days ago. He had congestion and runny nose. He states that yesterday it went to his lungs. He is coughing but the cough is dry. He is not coughing anything up. He is concerned because he gets pneumonia easily. He is a little short of breath, no chest pain. He is vaccinated for COVID. - Related Data Home Medications Medication Instructions Recorded Confirmed Aspirin 81 mg PO DAILY 04/30/19 04/30/19 Calcium Carbonate/Vitamin D3 1 tab PO DAILY 04/30/19 04/30/19 [Calcium 600-Vit D3 10 mcg (400 Iu)] Esomeprazole Magnesium [NexIUM 20 mg PO DAILY 04/30/19 04/30/19 24Hr] Levothyroxine Sodium [Synthroid] 50 mcg PO SUTUTHSA 04/30/19 04/30/19 Levothyroxine Sodium [Synthroid] 75 mcg PO MOWEFR 04/30/19 04/30/19 Simvastatin [Zocor] 20 mg PO HS 04/30/19 04/30/19 Previous Rx's Medication Instructions Recorded Amoxic-Pot Clav 875-125Mg 1 tab PO Q12HR #16 tablet 05/01/19 [Augmentin 875-125] Clotrimazole Cream [Lotrimin Cream] 1 applic TOPICAL BID #1 tube 07/11/19 Albuterol Inhaler [Ventolin Hfa 1 - 2 puff INHALATION RT-Q6H PRN 11/13/19 Inhaler] #1 inhaler Azithromycin [Zithromax Z-pack (6 250 mg PO DIRECTED #6 tab 11/13/19 tabs)] Guaifenesin/Dextromethorphan 1 each PO BID #30 capsule 11/13/19 [Robitussin Nvkvq-Dtqlj-Xukk Dm] predniSONE 10 mg PO DAILY #15 tab 11/13/19 Allergies Allergy/AdvReac Type Severity Reaction Status Date / Time No Known Allergies Allergy Verified 11/18/22 05:41 Review of Systems ROS Statement: Those systems with pertinent positive or pertinent negative responses have been documented in the HPI. ROS Other: All systems not noted in ROS Statement are negative. Past Medical History Past Medical History: Cancer, GERD/Reflux, Hyperlipidemia, Thyroid Disorder Additional Past Medical History / Comment(s): Prostate CA with surgery/radiation, diverticulitis, hypothyroid, bilateral cataracts, phimosis, History of Any Multi-Drug Resistant Organisms: None Reported Past Surgical History: Joint Replacement Additional Past Surgical History / Comment(s): Prostatectomy, right hip replacement, EGD, colonoscopies, cataract surgery Past Anesthesia/Blood Transfusion Reactions: No Reported Reaction Past Psychological History: No Psychological Hx Reported Past Alcohol Use History: Occasional Past Drug Use History: None Reported - Past Family History Father Family Medical History: Rheumatoid Arthritis (RA) Additional Family Medical History / Comment(s): Father lived to be 86-87 yrs old. Mother Family Medical History: Diabetes Mellitus Additional Family Medical History / Comment(s): Mother from complication of her diabetes at the age of 65yr General Exam Limitations: no limitations Course Vital Signs 11/18/22 11/18/22 05:42 11:42 Temperature 99.9 F H Pulse Rate 98 76 Respiratory 16 18 Rate Blood Pressure 143/92 126/86 O2 Sat by Pulse 95 94 L Oximetry Medical Decision Making - Lab Data Lab Results 11/18/22 Range/Units 05:45 Influenza Type A (PCR) Not Detected (Not Detectd) Influenza Type B (PCR) Not Detected (Not Detectd) RSV (PCR) Not Detected (Not Detectd) SARS-CoV-2 (PCR) Not Detected (Not Detectd) Disposition Clinical Impression: Cough Disposition: HOME SELF-CARE Condition: Good Is patient prescribed a controlled substance at d/c from ED?: No Referrals: None,Stated [REFERRING] - 1-2 days Time of Disposition: 12:01
[2022-11-18 11:45] VITALS: RESP 18
--- NOTE | 2022-11-18 12:01 | ED ---
General Adult HPI - General Chief complaint: Shortness of Breath Stated complaint: pneumonia Time Seen by Provider: 11/18/22 06:20 Source: patient, RN notes reviewed Mode of arrival: ambulatory Limitations: no limitations - History of Present Illness Initial comments: 82-year-old male presents to the emergency room for a chief complaint of cough. Patient states he started to get a head cold about 2-3 days ago. It started off as nasal congestion and runny nose. He states that yesterday it went into his lungs and he is coughing. He states the cough is dry and he is not able to cough anything up. Patient is concerned because he gets pneumonia easily. Last time he was psychiatric shot of antibiotics and a shot of steroids and thinks he needs this again. He denies a history of COPD or smoking. He is minimally short of breath no chest pain. He is vaccinated for COVID-19.Patient has no other complaints at this time including chest pain, abdominal pain, nausea or vomiting, headache, or visual changes. - Related Data Home Medications Medication Instructions Recorded Confirmed Aspirin 81 mg PO DAILY 04/30/19 04/30/19 Calcium Carbonate/Vitamin D3 1 tab PO DAILY 04/30/19 04/30/19 [Calcium 600-Vit D3 10 mcg (400 Iu)] Esomeprazole Magnesium [NexIUM 20 mg PO DAILY 04/30/19 04/30/19 24Hr] Levothyroxine Sodium [Synthroid] 50 mcg PO SUTUTHSA 04/30/19 04/30/19 Levothyroxine Sodium [Synthroid] 75 mcg PO MOWEFR 04/30/19 04/30/19 Simvastatin [Zocor] 20 mg PO HS 04/30/19 04/30/19 Previous Rx's Medication Instructions Recorded Amoxic-Pot Clav 875-125Mg 1 tab PO Q12HR #16 tablet 05/01/19 [Augmentin 875-125] Clotrimazole Cream [Lotrimin Cream] 1 applic TOPICAL BID #1 tube 07/11/19 Albuterol Inhaler [Ventolin Hfa 1 - 2 puff INHALATION RT-Q6H PRN 11/13/19 Inhaler] #1 inhaler Azithromycin [Zithromax Z-pack (6 250 mg PO DIRECTED #6 tab 11/13/19 tabs)] Guaifenesin/Dextromethorphan 1 each PO BID #30 capsule 11/13/19 [Robitussin Piigw-Ednev-Qpfa Dm] predniSONE 10 mg PO DAILY #15 tab 11/13/19 Azithromycin [Zithromax Z Pack] 1 tab PO DIRECTED #6 tab 11/18/22 predniSONE 50 mg PO DAILY #4 tablet 11/18/22 Allergies Allergy/AdvReac Type Severity Reaction Status Date / Time No Known Allergies Allergy Verified 11/18/22 05:41 Review of Systems ROS Statement: Those systems with pertinent positive or pertinent negative responses have been documented in the HPI. ROS Other: All systems not noted in ROS Statement are negative. Past Medical History Past Medical History: Cancer, GERD/Reflux, Hyperlipidemia, Thyroid Disorder Additional Past Medical History / Comment(s): Prostate CA with surgery/radiation, diverticulitis, hypothyroid, bilateral cataracts, phimosis, History of Any Multi-Drug Resistant Organisms: None Reported Past Surgical History: Joint Replacement Additional Past Surgical History / Comment(s): Prostatectomy, right hip replacement, EGD, colonoscopies, cataract surgery Past Anesthesia/Blood Transfusion Reactions: No Reported Reaction Past Psychological History: No Psychological Hx Reported Past Alcohol Use History: Occasional Past Drug Use History: None Reported - Past Family History Father Family Medical History: Rheumatoid Arthritis (RA) Additional Family Medical History / Comment(s): Father lived to be 86-87 yrs old. Mother Family Medical History: Diabetes Mellitus Additional Family Medical History / Comment(s): Mother from complication of her diabetes at the age of 65yr General Exam Limitations: no limitations General appearance: alert, in no apparent distress Head exam: Present: atraumatic Eye exam: Present: normal appearance, PERRL, EOMI. Absent: scleral icterus, conjunctival injection ENT exam: Present: normal exam, mucous membranes moist Neck exam: Present: normal inspection, full ROM. Absent: tenderness Respiratory exam: Present: rhonchi. Absent: respiratory distress, wheezes, rales, stridor Cardiovascular Exam: Present: regular rate, normal rhythm, normal heart sounds GI/Abdominal exam: Present: soft. Absent: distended, tenderness Neurological exam: Present: alert Course Vital Signs 11/18/22 11/18/22 05:42 11:42 Temperature 99.9 F H Pulse Rate 98 76 Respiratory 16 18 Rate Blood Pressure 143/92 126/86 O2 Sat by Pulse 95 94 L Oximetry Medical Decision Making - Medical Decision Making Vitals are stable. Patient is 95% on room air. Patient is well appearing. CXR and viral swabs negative. Patient requesting IM steroids and antibiotics. Will return for any worsening shortness of breath Was pt. sent in by a medical professional or institution (, SHIREEN, ELECTRONICS LEAD, urgent care, hospital, or skilled nursing...) When possible be specific @ -[No] Did you speak to anyone other than the patient for history (EMS, parent, family, police, friend...)? What history was obtained from this source @ -[No] Did you review nursing and triage notes (agree or disagree)? Why? @ -[I reviewed and agree with nursing and triage notes] Were old charts reviewed (outside hosp., previous admission, EMS record, old EKG, old radiological studies, urgent care reports/EKG's, skilled nursing records)? Report findings @ -[No old charts were reviewed] Differential Diagnosis (chest pain, altered mental status, abdominal pain women, abdominal pain men, vaginal bleeding, weakness, fever, dyspnea, syncope, headache, dizziness, GI bleed, back pain, seizure, CVA, palpatations, mental health)? @ -pneumonia, COVID, influenza, viral URI, this list is non exhaustive EKG interpreted by me (3pts min.). @ -not done X-rays interpreted by me (1pt min.). @ -No evidence of pneumonia CT interpreted by me (1pt min.). @ -[None done] U/S interpreted by me (1pt. min.). @ -[None done] What testing was considered but not performed or refused? (CT, X-rays, U/S, labs)? Why? @ -[None] What meds were considered but not given or refused? Why? @ -[None] Did you discuss the management of the patient with other professionals (professionals i.e. SHIREEN Mayer, ELECTRONICS LEAD, lab, RT, psych nurse, social media analyst, tapeman, teacher, civil preparedness officer, case managers)? Give summary @ -Dr Woo Was smoking cessation discussed for >3mins.? @ -[No] Was critical care preformed (if so, how long)? @ -[No] Were there social determinants of health that impacted care today? How? (Homelessness, low income, unemployed, alcoholism, drug addiction, transportation, low edu. Level, literacy, decrease access to med. care, halfway, rehab)? @ -yes, patient is travelling from [place] as he is there house sitting for his daughter Was there de-escalation of care discussed even if they declined (Discuss DNR or withdrawal of care, Hospice)? DNR status @ -[No] What co-morbidities impacted this encounter? (DM, HTN, Smoking, COPD, CAD, Cancer, CVA, ARF, Chemo, Hep., AIDS, mental health diagnosis, sleep apnea, morbid obesity)? @ -[None] Was patient admitted / discharged? Hospital course, mention meds given and route, prescriptions, significant lab abnormalities, going to OR and other pertinent info. @ -XR and viral swabs taken, patient given IM rocephin and solumedrol, discharged home with strict return parameters Undiagnosed new problem with uncertain prognosis? @ -[No] Drug Therapy requiring intensive monitoring for toxicity (Heparin, Nitro, Insulin, Cardizem)? @ -[No] Were any procedures done? @ -[No] Diagnosis/symptom? @ - cough Acute, or Chronic, or Acute on Chronic? @ -acute Uncomplicated (without systemic symptoms) or Complicated (systemic symptoms)? @ -uncomplicated Side effects of treatment? @ -[No] Exacerbation, Progression, or Severe Exacerbation? @ -[No] Poses a threat to life or bodily function? How? (Chest pain, [place], [place], pneumonia, PE, COPD, DKA, ARF, appy, cholecystitis, CVA, Diverticulitis, Homicidal, Suicidal, threat to staff... and all critical care pts) @ -[No] - Lab Data Lab Results 11/18/22 Range/Units 05:45 Influenza Type A (PCR) Not Detected (Not Detectd) Influenza Type B (PCR) Not Detected (Not Detectd) RSV (PCR) Not Detected (Not Detectd) SARS-CoV-2 (PCR) Not Detected (Not Detectd) Disposition Clinical Impression: Cough Disposition: HOME SELF-CARE Condition: Good Instructions (If sedation given, give patient instructions): Acute Cough (ED) Additional Instructions: Please take antibiotic as directed. Take steroid as directed. Follow up with primary care this week. If symptoms are worsening including shortness of breath return to the ER. Prescriptions: predniSONE 50 mg PO DAILY #4 tablet Azithromycin [Zithromax Z Pack] 1 tab PO DIRECTED #6 tab Is patient prescribed a controlled substance at d/c from ED?: No Referrals: Brant Whyte MD [STAFF PHYSICIAN] - 1-2 days Time of Disposition: 12:16
[2022-11-18] MEDS ORDERED: ACETAMINOPHEN TAB 500 MG TAB PO STA (12:04)
[2022-11-18] MEDS ORDERED: cefTRIAXone 1,000 MG VIAL (IM USE) IM STA (12:04)
[2022-11-18] MEDS ORDERED: methylPREDNISolone SOD SUCCI 125 MG/2 ML VIAL IM ONE (12:04)
[2022-11-18 12:48] VITALS: BP 118/76; PULSE 72
== END 2022-11-18 12:55 | disposition home or self-care (01) ==
LOC: EC 05:32
DX: R05.9 Cough, unspecified (principal); K21.9 Gastro-esophageal reflux disease without esophagitis; E03.9 Hypothyroidism, unspecified; E78.5 Hyperlipidemia, unspecified; Z20.822 Contact with and (suspected) exposure to COVID-19; Z79.890 Hormone replacement therapy; Z79.899 Other long term (current) drug therapy
CPT/HCPCS: 99285 ×2; 96372 ×3; 87636; 71046; J2930; J0696

== ENCOUNTER 2023-06-07 11:05 | Emergency (ER) | payer MEDICARE ==
[2023-06-07 11:17] VITALS: RESP 18
--- NOTE | 2023-06-07 11:37 | ED ---
General Adult HPI - General Chief complaint: Skin/Abscess/Foreign Body Stated complaint: Poss infection in Penis Time Seen by Provider: 06/07/23 11:22 Source: patient, RN notes reviewed Mode of arrival: ambulatory - History of Present Illness Initial comments: Patient is a an 83-year-old male presenting in the emergency room with concerns regarding infection to his penis. He reports discoloration, rash and burning sensation ongoing for a few days which he was concerned about and wanted further evaluation. He denies any concerns for STDs. He denies any urine h esitancy and reports that the burning sensation is continuous regardless of urination. He has applied Neosporin to the glans of his penis without any improvement in symptoms. He is concerned that his current treatment from his urologist for prostate cancer is causing symptoms that he is incurring along with causing shrinking of his penis glans. He denies any fevers, chills, flank pain or other complaints or concerns. In addition to his prostate cancer he has a past medical history significant for hyperlipidemia, hypothyroidism, GERD, diverticulosis and pneumonia. - Related Data Home Medications Medication Instructions Recorded Confirmed Aspirin 81 mg PO DAILY 04/30/19 04/30/19 Calcium Carbonate/Vitamin D3 1 tab PO DAILY 04/30/19 04/30/19 [Calcium 600-Vit D3 10 mcg (400 Iu)] Esomeprazole Magnesium [NexIUM 20 mg PO DAILY 04/30/19 04/30/19 24Hr] Levothyroxine Sodium [Synthroid] 50 mcg PO SUTUTHSA 04/30/19 04/30/19 Levothyroxine Sodium [Synthroid] 75 mcg PO MOWEFR 04/30/19 04/30/19 Simvastatin [Zocor] 20 mg PO HS 04/30/19 04/30/19 Previous Rx's Medication Instructions Recorded Amoxic-Pot Clav 875-125Mg 1 tab PO Q12HR #16 tablet 05/01/19 [Augmentin 875-125] Clotrimazole Cream [Lotrimin Cream] 1 applic TOPICAL BID #1 tube 07/11/19 Albuterol Inhaler [Ventolin Hfa 1 - 2 puff INHALATION RT-Q6H PRN 11/13/19 Inhaler] #1 inhaler Azithromycin [Zithromax Z-pack (6 250 mg PO DIRECTED #6 tab 11/13/19 tabs)] Guaifenesin/Dextromethorphan 1 each PO BID #30 capsule 11/13/19 [Robitussin Mpmlx-Nbvlz-Tojw Dm] predniSONE 10 mg PO DAILY #15 tab 11/13/19 Azithromycin [Zithromax Z Pack] 1 tab PO DIRECTED #6 tab 11/18/22 predniSONE 50 mg PO DAILY #4 tablet 11/18/22 Nystatin 100,000 Unit/gm Oint 1 applic TOPICAL TID #60 gm 06/07/23 [Mycostatin Oint] Nystatin 100,000 Unit/gm Powd 1 applic TOPICAL TID #30 gm 06/07/23 [Mycostatin Powder] Allergies Allergy/AdvReac Type Severity Reaction Status Date / Time No Known Allergies Allergy Verified 06/07/23 11:18 Review of Systems ROS Statement: Those systems with pertinent positive or pertinent negative responses have been documented in the HPI. ROS Other: All systems not noted in ROS Statement are negative. Past Medical History Past Medical History: Cancer, GERD/Reflux, Hyperlipidemia, Pneumonia, Thyroid Disorder Additional Past Medical History / Comment(s): Prostate CA with surgery/radiation, diverticulitis, hypothyroid, bilateral cataracts, phimosis, History of Any Multi-Drug Resistant Organisms: None Reported Past Surgical History: Joint Replacement Additional Past Surgical History / Comment(s): Prostatectomy, right hip replacement, EGD, colonoscopies, cataract surgery Past Anesthesia/Blood Transfusion Reactions: No Reported Reaction Past Psychological History: No Psychological Hx Reported Smoking Status: Never smoker Past Alcohol Use History: Occasional Past Drug Use History: None Reported - Past Family History Father Family Medical History: Rheumatoid Arthritis (RA) Additional Family Medical History / Comment(s): Father lived to be 86-87 yrs old. Mother Family Medical History: Diabetes Mellitus Additional Family Medical History / Comment(s): Mother from complication of her diabetes at the age of 65yr General Exam Limitations: no limitations General appearance: alert, in no apparent distress Head exam: Present: atraumatic, normocephalic, normal inspection Eye exam: Present: normal appearance, PERRL, EOMI. Absent: scleral icterus, conjunctival injection, periorbital swelling ENT exam: Present: normal exam, mucous membranes moist Neck exam: Present: normal inspection, full ROM Respiratory exam: Absent: respiratory distress, accessory muscle use Cardiovascular Exam: Present: regular rate GI/Abdominal exam: Present: soft, normal bowel sounds. Absent: distended, tenderness, guarding, rebound, rigid Rectal exam: Present: deferred exam: Present: circumcision. Absent: testicular tenderness, urethral discharge, scrotal swelling External exam: Present: erythema (Blotchy discoloration). Absent: swelling Back exam: Present: normal inspection Neurological exam: Present: alert, oriented X3, CN II-XII intact Psychiatric exam: Present: normal affect, normal mood Skin exam: Present: rash (As above to penis glands) Course Vital Signs 06/07/23 06/07/23 11:09 12:59 Temperature 98.5 F 97.8 F Pulse Rate 62 64 Respiratory 18 18 Rate Blood Pressure 177/99 170/86 O2 Sat by Pulse 96 96 Oximetry Medical Decision Making - Medical Decision Making Was pt. sent in by a medical professional or institution (, PA, DOCK MANAGER, urgent care, hospital, or skilled nursing...) When possible be specific @ -No Did you speak to anyone other than the patient for history (EMS, parent, family, police, friend...)? What history was obtained from this source @ -No Did you review nursing and triage notes (agree or disagree)? Why? @ -I reviewed and agree with nursing and triage notes Were old charts reviewed (outside hosp., previous admission, EMS record, old EKG, old radiological studies, urgent care reports/EKG's, skilled nursing records)? Report findings @ -No old charts were reviewed Differential Diagnosis (chest pain, altered mental status, abdominal pain women, abdominal pain men, vaginal bleeding, weakness, fever, dyspnea, syncope, headache, dizziness, GI bleed, back pain, seizure, CVA, palpatations, mental health, musculoskeletal)? @ -Differential Rash: Contact dermatitis, allergic reaction, petechial rash, herpes, STD infection, candidiasis of the genital region, atopic dermatitis, UTI this is not meant to be an all-inclusive list. EKG interpreted by me (3pts min.). @ -None done X-rays interpreted by me (1pt min.). @ -None done CT interpreted by me (1pt min.). @ -None done U/S interpreted by me (1pt. min.). @ -None done What testing was considered but not performed or refused? (CT, X-rays, U/S, labs)? Why? @ -None What meds were considered but not given or refused? Why? @ -None Did you discuss the management of the patient with other professionals (professionals i.e. , PA, DOCK MANAGER, lab, RT, psych nurse, mental health social worker, call center assistant, teacher, boating safety officer, caseworker protective services)? Give summary @ -No Was smoking cessation discussed for >3mins.? @ -No Was critical care preformed (if so, how long)? @ -No Were there social determinants of health that impacted care today? How? (Homelessness, low income, unemployed, alcoholism, drug addiction, transportation, low edu. Level, literacy, decrease access to med. care, assisted, rehab)? @ -No Was there de-escalation of care discussed even if they declined (Discuss DNR or withdrawal of care, Hospice)? DNR status @ -No What co-morbidities impacted this encounter? (DM, HTN, Smoking, COPD, CAD, Cancer, CVA, ARF, Chemo, Hep., AIDS, mental health diagnosis, sleep apnea, morbid obesity)? @ -None Was patient admitted / discharged? Hospital course, mention meds given and route, prescriptions, significant lab abnormalities, going to OR and other pertinent info. @ -83-year-old male presenting in the emergency room with concerns regarding infection to his penis. He reports discoloration, rash and burning sensation ongoing for a few days which he was concerned about and wanted further evaluation. He denies any concerns for STDs but would like testing for chlamydia and gonorrhea. No indication for diagnostic imaging or medication administration will obtain urinalysis and urine for chlamydia and gonorrhea. Exam consistent with candidiasis of the genitals will await urinalysis results. Urinalysis negative abnormalities. No indication for empiric treatment. Education regarding skin yeast infections and balanoposthiti. Will treat topically. No indication for systemic treatment. Encouraged follow-up with his urologist. Questions and concerns answered. Return parameters to the emergency room discussed. Will discharge home in stable condition topical treatment for candidiasis infection of the genital region. Undiagnosed new problem with uncertain prognosis? @ -No Drug Therapy requiring intensive monitoring for toxicity (Heparin, Nitro, Insulin, Cardizem)? @ -No Were any procedures done? @ -No Diagnosis/symptom? @ -Blanche infection of the genital region Acute, or Chronic, or Acute on Chronic? @ -Acute Uncomplicated (without systemic symptoms) or Complicated (systemic symptoms)? @ -Uncomplicated Side effects of treatment? @ -No Exacerbation, Progression, or Severe Exacerbation? @ -No Poses a threat to life or bodily function? How? (Chest pain, [place], [place], pneumonia, PE, COPD, DKA, ARF, appy, cholecystitis, CVA, Diverticulitis, Homicidal, Suicidal, threat to staff... and all critical care pts) @ -No Case discussed with Dr. Daniel. - Lab Data Lab Results 06/07/23 06/07/23 Range/Units 11:38 11:50 Urine Color Yellow Urine Appearance Clear (Clear) Urine pH 5.0 (5.0-8.0) Ur Specific [place] 1.025 (1.001-1.035) Urine Protein Negative (Negative) Urine Glucose (UA) Negative (Negative) Urine Ketones Negative (Negative) Urine Blood Negative (Negative) Urine Nitrite Negative (Negative) Urine Bilirubin Negative (Negative) Urine Urobilinogen <2.0 (<2.0) mg/dL Ur Leukocyte Esterase Negative (Negative) Chlamydia DNA (PCR) Negative (Negative) N.gonorrhoeae DNA Probe Negative (Negative) Disposition Clinical Impression: Blanche infection of genital region Disposition: HOME SELF-CARE Condition: Stable Instructions (If sedation given, give patient instructions): Skin Yeast Infection (ED), Balanoposthitis (ED) Additional Instructions: Keep perineal region skin clean and dry. Apply nystatin cream or powder to affected area until symptoms resolve. Please follow-up with your primary care provider and/or urologist. Please return to the Emergency Department if symptoms worsen or any other concerns. Prescriptions: Nystatin 100,000 Unit/gm Oint [Mycostatin Oint] 1 applic TOPICAL TID #60 gm Nystatin 100,000 Unit/gm Powd [Mycostatin Powder] 1 applic TOPICAL TID #30 gm Is patient prescribed a controlled substance at d/c from ED?: No Referrals: Nonstaff,Physician [Primary Care Provider] - 1-2 days Time of Disposition: 12:53
[2023-06-07 12:19] LABS: Appearance,Urine Clear (Clear); Color,Urine Yellow; Glucose,Urine (UA) Negative (Negative); Protein,Urine Negative (Negative); Specific Gravity,Urine 1.025 (1.001-1.035)
[2023-06-07 12:20] LABS: Bilirubin,Urine Negative (Negative); Blood,Urine Negative (Negative); Ketones,Urine Negative (Negative); Leukocyte Esterase,Urine Negative (Negative); Nitrite,Urine Negative (Negative); Urobilinogen,Urine <2.0 mg/dL (<2.0)
[2023-06-07 13:02] VITALS: BP 170/86; PULSE 64; TEMP 97.8
[2023-06-08 13:24] LABS: C. trachomatis,PCR Negative (Negative)
[2023-06-08 13:49] LABS: N. gonorrhoeae,PCR Negative (Negative)
== END 2023-06-07 13:10 | disposition home or self-care (01) ==
LOC: EC 11:05
DX: B37.49 Other urogenital candidiasis (principal); E78.5 Hyperlipidemia, unspecified; E03.9 Hypothyroidism, unspecified; Z79.82 Long term (current) use of aspirin; Z79.890 Hormone replacement therapy; Z79.899 Other long term (current) drug therapy
CPT/HCPCS: 81003; 87491; 87591; 99283